=== PATIENT | female | born 1950 | race Caucasian/White ===

== ENCOUNTER → 2017-02-17 | Outpatient (CLI) | payer OTHER ==
--- NOTE | 2017-02-17 11:09 | RAD ---
Left hand, 3 views, 02/17/2017: History: Hand pain and swelling There are mild degenerative changes at scattered interphalangeal joints. There is moderate degenerative change at the first CMC joint and at the radiocarpal articulation. No acute fracture or dislocation is identified. The soft tissues are unremarkable. IMPRESSION: 1. Moderate scattered degenerative changes. 2. No acute bony abnormality is detected.
== END | disposition home or self-care (01) ==
LOC: RAD 07:47
PROVIDERS: ATTEND Family Medicine
DX: M65.312 Trigger thumb, left thumb (principal)
CPT/HCPCS: 73130

== ENCOUNTER → 2017-08-10 | Outpatient (CLI) | payer OTHER ==
[2017-08-10 11:47] LABS: ALBUMIN 3.9 g/dL (3.4-5.0); ALBUMIN/GLOBULIN RATIO 1.1 (1.0-1.7); CALCIUM 8.9 mg/dL (8.5-10.1); CREATININE 1.1 mg/dL (0.6-1.0); GFR 49.2; TOTAL BILIRUBIN 0.6 mg/dL (0.2-1.0); TOTAL PROTEIN 7.6 g/dL (6.4-8.2)
[2017-08-10 11:51] LABS: CHOLESTEROL/HDL RATIO 2.3
== END | disposition home or self-care (01) ==
LOC: LAB 10:17
PROVIDERS: ATTEND Family Medicine
DX: Z51.81 Encounter for therapeutic drug level monitoring (principal); I10 Essential (primary) hypertension; E78.5 Hyperlipidemia, unspecified
CPT/HCPCS: 36415; 80053; 80061

== ENCOUNTER → 2017-08-11 | Outpatient (CLI) | payer OTHER ==
--- NOTE | 2017-08-11 11:17 | RAD ---
Examination: MRI right shoulder without contrast HISTORY: History of right shoulder pain 2 weeks after fall COMPARISON: None available TECHNIQUE: Only axial PD fat sat and coronal T1 images were obtained. Patient could not tolerate full length study. Findings Very limited examination as only 2 sequences of right shoulder were obtained as patient could not tolerate full length study and there is severe motion artifact which degrades images. Grossly mild shoulder joint effusion identified. The long biceps tendon appears within the glenoid. The attachment of the subscapularis tendon grossly appears intact. The evaluation of the rotator cuff, labrum cannot be assessed on this examination. Cystic change or edema identified in the posterolateral humerus head. Moderate acromioclavicular joint osteoarthritis. The acromion is type I. IMPRESSION: 1. Very limited examination as only 2 sequences of right shoulder were obtained as patient could not tolerate full length study and there is severe motion artifact which degrades images. Recommend repeat exam when patient is able to fully cooperate/remain still for the study. 2. The evaluation of the rotator cuff, labrum cannot be assessed on this examination. Cystic change or edema identified in the posterolateral humerus head. Electronically signed by: Jorge Luis Fierro MD (08/11/2017 11:14 AM) [id number]
== END | disposition home or self-care (01) ==
LOC: MRI 09:23
PROVIDERS: ATTEND Family Medicine
DX: M19.011 Primary osteoarthritis, right shoulder (principal); W19.XXXD Unspecified fall, subsequent encounter
CPT/HCPCS: 73221

== ENCOUNTER → 2017-08-20 | Outpatient (CLI) | payer OTHER ==
--- NOTE | 2017-08-20 09:50 | RAD ---
Examination: MRI of the right shoulder without contrast HISTORY: History of right shoulder pain for 3 weeks post fall COMPARISON: None available TECHNIQUE: Multiplanar, multisequence MR imaging of the right shoulder were performed without contrast FINDINGS: The long head the biceps tendon is within the bicipital groove. The attachment of the long head of the biceps tendon to the superior labral anchor grossly appears intact. The attachment of the subscapularis tendon grossly appears intact. There is moderate tendinosis of the supraspinatus, infraspinatus tendons. There is minimal amount of fluid identified in the subacromial subdeltoid bursa. There is bursal sided fraying of the supraspinatus tendon. Moderate degenerative changes identified in the acromioclavicular joint. The inferior aspect of the acromion abuts the superior aspect of the supraspinatus tendon. Mild increased signal identified throughout the labrum likely degeneration. There is mild increased signal identified in the posterior labrum, best visualized on series 4 image #14. Small shoulder joint effusion identified Small cystic changes identified in the posterior aspect of the greater tuberosity at the site of attachment of the infraspinatus tendon. There is obliteration of fat in the rotator interval. The muscle bulk grossly appears unremarkable. IMPRESSION: 1. No evidence of full-thickness tear of the rotator cuff. There is moderate tendinosis of the supraspinatus, infraspinatus tendon. There is small amount of fluid identified in the subacromial subdeltoid bursa with the inferior aspect of the acromion amount abutting the superior aspect of the supraspinatus tendon. Correlate for impingement. There is bursal sided fraying of the supraspinatus tendon. 2. Mild increased signal identified in the posterior labrum, question small labral tear with diffuse degenerative changes throughout the labrum. 3. Obliteration of fat in the rotator interval. Correlate for adhesive capsulitis. 4. Small cystic changes identified in the posterior aspect of the greater tuberosity of the humerus at the site of attachment of the the infraspinatus tendon. Electronically signed by: Jorge Luis Fierro MD (08/20/2017 9:46 AM) [id number]
== END | disposition home or self-care (01) ==
LOC: MRI 07:58
PROVIDERS: ATTEND Family Medicine
DX: M19.011 Primary osteoarthritis, right shoulder (principal); M25.411 Effusion, right shoulder; W19.XXXD Unspecified fall, subsequent encounter
CPT/HCPCS: 73221

== ENCOUNTER → 2018-08-18 | Outpatient (CLI) | payer OTHER ==
[2018-08-18 09:46] LABS: BILIRUBIN,URINE NEGATIVE (NEG); CLARITY,URINE CLEAR; COLOR,URINE AMBER; NITRITE,URINE POSITIVE (NEG); PROTEIN,URINE NEGATIVE (NEG-TRACE)
[2018-08-18 10:02] LABS: BACTERIA,URINE MODERATE /HPF (0-FEW); SQUAMOUS EPITHELIAL CELL,UR FEW /LPF
[2018-08-18 10:03] LABS: RBC,URINE 0 /HPF (0-2)
== END | disposition home or self-care (01) ==
LOC: LAB 08:20
PROVIDERS: ATTEND Family Medicine
DX: N99.3 Prolapse of vaginal vault after hysterectomy (principal)
CPT/HCPCS: 81001; 87086; 87186

== ENCOUNTER → 2018-10-29 | Outpatient (CLI) | payer OTHER ==
[2018-10-29 10:00] LABS: ALBUMIN 3.6 g/dL (3.4-5.0); CALCIUM 8.7 mg/dL (8.5-10.1); GFR 54.8; POTASSIUM 4.3 mmol/L (3.5-5.1); TOTAL BILIRUBIN 0.2 mg/dL (0.2-1.0); TOTAL PROTEIN 7.2 g/dL (6.4-8.2)
[2018-10-29 10:10] LABS: CHOLESTEROL/HDL RATIO 4.2
--- NOTE | 2018-10-29 11:53 | RAD ---
Pelvis with right hip, 3 views, 10/29/2018: HISTORY: Chronic hip pain, previous fall No fracture or dislocation is identified. The hip joints are well-maintained with only mild marginal spurring. There are moderate degenerative changes in the lower lumbar spine. Aortoiliac calcific plaquing is present. IMPRESSION: 1. Mild degenerative change at both hip joints. 2. No acute bony abnormality is detected. Electronically signed by: Yevgeniy Hernandez MD (10/29/2018 11:49 AM) [facility]
== END | disposition home or self-care (01) ==
LOC: RAD 08:50
PROVIDERS: ATTEND Family Medicine
DX: M16.0 Bilateral primary osteoarthritis of hip (principal); M51.36 Other intervertebral disc degeneration, lumbar region; I70.0 Atherosclerosis of aorta; E78.5 Hyperlipidemia, unspecified; I10 Essential (primary) hypertension
CPT/HCPCS: 36415; 73502; 80053; 80061

== ENCOUNTER → 2018-10-29 | Outpatient (CLI) | payer OTHER | END | disposition home or self-care (01) | LOC: LAB 09:02 | PROVIDERS: ATTEND Urology | DX: N99.3 Prolapse of vaginal vault after hysterectomy (principal) | CPT/HCPCS: 87086 ==

== ENCOUNTER → 2019-03-23 | Outpatient (CLI) | payer OTHER ==
--- NOTE | 2019-03-23 11:31 | RAD ---
Right lower extremity venous Doppler ultrasound History: RT THIGH PAIN/CRAMPS Comparison: None. Procedure: Color flow Doppler, Doppler spectral analysis, and 2D images are obtained with and without compression in the area of the common femoral vein, superficial femoral vein - femoral vein junction, main femoral vein (superficial femoral vein) and popliteal vein. Veins of the proximal calf are also imaged. Findings: There is normal color flow, augmentation, and compressibility of all visualized vein segments. No evidence of deep venous thrombus is present. There is superficial thrombophlebitis in the mid and distal thigh, the greater saphenous vein is occluded with noncompressibility and lack of color flow. The proximal greater saphenous vein is patent. The greater saphenous vein in the calf is patent. IMPRESSION: 1. No evidence of right lower extremity deep venous thrombosis. 2. Superficial thrombophlebitis of the greater saphenous vein in the mid and distal thigh. Electronically signed by: Warren Ricci MD (03/23/2019 11:29 AM) [id number]
== END | disposition home or self-care (01) ==
LOC: US 10:32
PROVIDERS: ATTEND Family Medicine
DX: I80.01 Phlebitis and thrombophlebitis of superficial vessels of right lower extremity (principal)
CPT/HCPCS: 93971